=== PATIENT | male | born 1990 | race Two or more races ===

== ENCOUNTER 2024-07-22 20:13 | Emergency (ER) | payer SELFPAY ==
[~2024-07-22] VITALS: Ht 172.7 cm; Wt 100.0 kg
[2024-07-22 20:13] VITALS: BP 149/89; PULSE 101; RESP 14; TEMP 98.9; O2SAT 100
--- NOTE | 2024-07-22 21:21 | ED.PDOC ---
History of Present Illness HPI Comments 34 y/o obese M, with a history of mental health issues, is BIBA for c/o chest pain. Patient is a poor historian and endorses on having pain in his chest for several years. No recent ailments, sick contact, travel, injuries, stressors, or strenuous activities reported. He denies having any shortness of breath, palpitations, nausea, vomiting, or further associated symptoms. Per EMS report, patient, initially, called out of chest pain but is stated to have, continually, give mixed report on what was his main complaint or whether or not he wanted to be evaluated. Time Seen by MD: 20:10 Reviewed Notes: Nurses Notes, Automotive Brake Technician Notes, Medications, Allergies Allergies: Coded Allergies: NO KNOWN ALLERGIES (Unverified , 07/22/24) Information Source: Patient, Emergency Med Personnel Mode of Arrival: EMS Severity: Moderate Timing: Months Duration: Since onset Prehospital treatment: 12 Lead EKG, Sofa Inspector Past Medical History Past Medical History (Other): unspecified psychiatric condition Surgical History: Denies all surgeries Family History Family History: Unknown Social History Smoker: Non-Smoker Alcohol: Denies ETOH Use Drugs: Denies Drug Use Lives In: Home All Other Systems: Reviewed and Negative (see HPI) Physical Exam General Appearance: No Apparent Distress, Obese HEENT: Normal ENT Inspection, Pharynx Normal, TMs Normal Neck: Full Range of Motion, Non-Tender, Normal, Normal Inspection Respiratory: Chest Non-Tender, Lungs Clear, No Accessory Muscle Use, No Respiratory Distress, Normal Breath Sounds Cardiovascular: No Edema, No JVD, No Murmur, No Gallop, Normal Peripheral Pulses, Regular Rate/Rhythm Breast Exam: Deferred Gastrointestinal: No Organomegaly, Non Tender, No Pulsatile Mass, Normal Bowel Sounds, Soft Genitalia: Deferred Pelvic: Deferred Rectal: Deferred Extremities: No calf tenderness, Normal capillary refill, Normal inspection, Normal range of motion, Non-tender, No pedal edema Musculoskeletal : Apperance: Normal Neurologic: Alert, bricklayer tender II-XII nml as Tested, No Motor Deficits, Normal Mood, No Sensory Deficits, Other (Odd affect ) Cerebellar Function: Normal Reflexes: Normal Skin: Dry, Normal Color, Warm Lymphatic: No Adenopathy Was a procedure done? Was a procedure done?: No Differential Dx Considerations may include: OR, PE, ACS, URI, PNA, anxiety, costochondritis, pericarditis, gastritis, schizoaffective disorder, medication noncompliance, among others X-Ray, Labs, Meds, VS Vital Signs Date Time Temp Pulse Resp B/P (MAP) Pulse Ox O2 Delivery O2 Flow Rate FiO2 07/22/24 20:13 98.9 101 14 149/89 (109) 100 98.9 Lab Test 07/22/24 23:38 07/22/24 22:35 Range/Units Troponin I High Sensitivity 6 7 </=54 ng/L White Blood Count 8.4 4.4-10.8 10^3/uL Red Blood Count 5.78 4.5-5.90 10^6/uL Hemoglobin 16.3 13.5-17.5 g/dL Hematocrit 48.7 41.0-53.0 % Mean Corpuscular Volume 84.2 80.0-100.0 fL Mean Corpuscular Hemoglobin 28.3 28.0-32.0 pg Mean Corpuscular Hemoglobin Concent 33.5 32.0-36.0 g/dL Red Cell Distribution Width 13.6 11.8-14.3 % Platelet Count 266 140-450 10^3/uL Mean Platelet Volume 8.0 6.9-10.8 fL Neutrophils (%) (Auto) 61.9 37.0-80.0 % Lymphocytes (%) (Auto) 30.9 10.0-50.0 % Monocytes (%) (Auto) 4.8 0.0-12.0 % Eosinophils (%) (Auto) 1.4 0.0-7.0 % Basophils (%) (Auto) 1.0 0.0-2.0 % Neutrophils # (Auto) 5.2 1.6-8.6 10 ^3/uL Lymphocytes # (Auto) 2.6 0.4-5.4 10 ^3/uL Monocytes # (Auto) 0.4 0-1.3 10 ^3/uL Eosinophils # (Auto) 0.1 0-0.8 10 ^3/uL Basophils # (Auto) 0.1 0-0.2 10 ^3/uL Nucleated Red Blood Cells 0.2 % D-Dimer, Quantitative 0.29 0.0-0.49 mg/L FEU Sodium Level 144 136-145 mmol/L Potassium Level 3.5 3.5-5.1 mmol/L Chloride Level 107 98-107 mmol/L Carbon Dioxide Level 26 20-31 mmol/L Anion Gap 11 5-15 Blood Urea Nitrogen 8 L 9-23 mg/dL Creatinine 0.69 L 0.700-1.30 mg/dL Glomerular Filtration Rate Calc 125 >90 mL/min BUN/Creatinine Ratio 11.6 10.0-20.0 Serum Glucose 141 H 74-106 mg/dL Calcium Level 9.2 8.7-10.4 mg/dL Total Bilirubin 0.3 0.2-1.0 mg/dL Aspartate Amino Transferase (AST) 30 <34 U/L Alanine Aminotransferase (ALT) 47 H 7-40 U/L Alkaline Phosphatase 80 46-116 U/L Total Protein 7.0 5.7-8.2 g/dL Albumin 4.8 3.2-4.8 g/dL Time of 1ST Reevaluation: 20:40 Reevaluation 1ST: Unchanged Patient Education/Counseling: Diagnosis, Treatment, Need For Follow Up Family Education/Counseling: No Family Present Departure 1 Departure Time of Disposition: 23:00 Impression: Primary Impression: Atypical chest pain Disposition: 01 HOME / SELF CARE / HOMELESS Condition: Stable Discharged With: Self Critical Care Note Critical Care Time?: No Stability Stability form required: No Heart Score Heart Score: Heart Score Response (Comments) Value History Slightly Suspicious 0 EKG Repolarization Disturb 1 Age <45 0 Risk Factors No known risk factors 0 Troponin Normal limit 0 Total 1 I personally scribed for KELSEY JONES MD ([email or web address]) on 07/22/24 at 21:21. Electronically submitted by Macario Mckeon ([email or web address]). KELSEY JONES MD Jul 22, 2024 21:21
[2024-07-22 22:45] LABS: Basophils # (auto) 0.1 10 ^3/uL (0-0.2); Eosinophils # (auto) 0.1 10 ^3/uL (0-0.8); Eosinophils % (auto) 1.4 % (0.0-7.0); Hematocrit 48.7 % (41.0-53.0); Hemoglobin 16.3 g/dL (13.5-17.5); Lymphocytes # (auto) 2.6 10 ^3/uL (0.4-5.4); Lymphocytes % (auto) 30.9 % (10.0-50.0); Mean Corpuscular Hemoglobin 28.3 pg (28.0-32.0); Mean Corpuscular Hgb Conc. 33.5 g/dL (32.0-36.0); Mean Corpuscular Volume 84.2 fL (80.0-100.0); Monocytes # (auto) 0.4 10 ^3/uL (0-1.3); Monocytes % (auto) 4.8 % (0.0-12.0); Neutrophils # (auto) 5.2 10 ^3/uL (1.6-8.6); Neutrophils % (auto) 61.9 % (37.0-80.0); Nucleated Red Blood Cells % 0.2 %; Platelet Count (auto) 266 10^3/uL (140-450); Red Blood Cells 5.78 10^6/uL (4.5-5.90); Red Cell Distribution Width 13.6 % (11.8-14.3); White Blood Cell 8.4 10^3/uL (4.4-10.8)
[2024-07-22 23:00] LABS: Albumin 4.8 g/dL (3.2-4.8); Alkaline Phosphatase 80 U/L (46-116); Anion Gap 11 (5-15); Aspartate Aminotransferase 30 U/L (<34); BUN/Creatinine Ratio 11.6 (10.0-20.0); Bilirubin, Total 0.3 mg/dL (0.2-1.0); Calcium 9.2 mg/dL (8.7-10.4); Carbon Dioxide 26 mmol/L (20-31); Sodium 144 mmol/L (136-145)
[2024-07-22 23:04] LABS: Alanine Aminotransferase 47 U/L (7-40); Blood Urea Nitrogen 8 mg/dL (9-23); Chloride 107 mmol/L (98-107); Glucose 141 mg/dL (74-106); Potassium 3.5 mmol/L (3.5-5.1)
--- NOTE | 2024-07-23 01:03 | DVH ---
CHEST RADIOGRAPH Indication: chest pain Technique: Single frontal view of the chest was obtained COMPARISON: None FINDINGS: Lines and Tubes: None Lungs: Clear Pleura: No effusion. No pneumothorax. Cardiomediastinal contours: Unremarkable Bones: Unremarkable IMPRESSION: 1. No acute disease.
== END 2024-07-23 01:30 | disposition home or self-care (01) ==
LOC: EDBD 20:13 → ER 20:13
DX: R07.89 Other chest pain (principal); E66.9 Obesity, unspecified
CPT/HCPCS: 36415; 71045; 80053; 84484; 85025; 85379